=== PATIENT | male | born 1985 | race Caucasian/White ===

== ENCOUNTER 2017-05-12 19:58 | Emergency (ER) | payer MEDICAID, OTHER ==
[2017-05-13] MEDS: DIPHTH/TET/ACEL PERTUSS (ADULT) 0.5 ML VIAL IM* (00:07)
[2017-05-13] MEDS: KETOROLAC 60 MG INJ IM (00:08)
== END 2017-05-13 01:56 | disposition home or self-care (01) ==
LOC: FTE 19:58
DX: S61.011A Laceration without foreign body of right thumb without damage to nail, initial encounter (principal); F17.210 Nicotine dependence, cigarettes, uncomplicated; W23.0XXA Caught, crushed, jammed, or pinched between moving objects, initial encounter; Y92.9 Unspecified place or not applicable; Z23 Encounter for immunization
CPT/HCPCS: 12001; 73140; 90471; 90715; 96372; 99284-25

== ENCOUNTER 2018-05-16 11:04 | Emergency (ER) | payer OTHER, MEDICAID ==
[2018-05-16] MEDS: KETOROLAC 60 MG INJ IM (14:43)
[2018-05-16] MEDS: OPHTHALMIC IRRIG SOLUTION 120 ML BOTH EYES (14:43)
[2018-05-16] MEDS: HYDROCODONE/APAP (5/325) TAB PO (14:43)
[2018-05-16] MEDS: LIDOCAINE 4% CR TOP (14:43)
[2018-05-16] MEDS: SILVER SULFADIAZINE 1% 25 GM CR TOP (14:43)
[2018-05-16] MEDS: TETRACAINE 0.5% 4 ML OPH BOTH EYES (14:44)
[2018-05-16] MEDS: FLUORESCEIN STRIP BOTH EYES (14:52)
[2018-05-16] MEDS: DIPHTH/TET/ACEL PERTUSS (ADULT) 0.5 ML VIAL IM* (15:30)
[2018-05-16] MEDS: ERYTHROMYCIN 1 GM OPH OINT BOTH EYES (15:54)
== END 2018-05-16 16:00 | disposition home or self-care (01) ==
LOC: FTE 11:04
DX: T20.16XA Burn of first degree of forehead and cheek, initial encounter (principal); T26.01XA Burn of right eyelid and periocular area, initial encounter; T26.02XA Burn of left eyelid and periocular area, initial encounter; X15.0XXA Contact with hot stove (kitchen), initial encounter; Y92.9 Unspecified place or not applicable; Z23 Encounter for immunization; Z87.891 Personal history of nicotine dependence
CPT/HCPCS: 90471; 90715; 96372; 99284-25